=== PATIENT | female | born 1980 | race Caucasian/White ===

== ENCOUNTER → 2019-01-07 | Outpatient (CLI) | payer OTHER ==
--- NOTE | 2019-01-07 16:00 | WOMENS IMAGING REPORT ---
EXAM DESCRIPTION: BILAT DIAGNOSTIC MAMMO W/CAD; U/S BREAST UNILAT LIMITED COMPLETED DATE/TIME: 01/07/2019 12:50 pm; 01/07/2019 1:25 pm REASON FOR STUDY: N64.59 INVERSION OF NIPPLE; RT BREAST N64.4 N64.59 OTHER SIGNS AND SYMPTOMS IN EAST COMPARISON: None. EXAM PARAMETERS: Standard craniocaudal and mediolateral oblique views of each breast recorded using digital acquisition. Right breast 90 mediolateral view. Cone compression right breast in the CC and MLO orientations. R ight breast ultrasound. Read with the assistance of CAD: .COUNTS INCLUDE 234 BEDS AT THE [facility] - Medical Simulation Surface [employer] Version 9.2 LIMITATIONS: None. FINDINGS: RIGHT BREAST MASSES: In the right breast retroareolar region medially, a small mammographic nodule is present britta uring about 10 mm greatest length. This was subsequently evaluated with ultrasound, if found to be a small hypoechoic solid nodule. Ultrasound-guided core biopsy, post biopsy clip placement and follow -up two-view mammogram recommended. CALCIFICATIONS: No new or suspicious calcifications. ARCHITECTURAL DISTORTION: None. DEVELOPING DENSITY: None. ASYMMETRY: None noted. OTHER: No other significant findings. LEFT BREAST MASSES: No suspicious masses. CALCIFICATIONS: No new or suspicious calcifications. ARCHITECTURAL DISTORTION: None. DEVELOPING DENSITY: None. ASYMMETRY: None noted. OTHER: No other significant finding. Right breast ultrasound: In the right retroareolar region, a hypoechoic solid nodule is present about 10 mm in diameter few da ys status lobular margins, internal color flow, and may represent a small papilloma or fibroadenoma. Ultrasound-guided core biopsy, post biopsy clip placement and immediate follow-up two-view mammogram recommended. IMPRESSION: Small solid nodule right breast retroareolar region medially for which ultrasound-guided core biopsy, post biopsy clip placement and follow-up two-view mammogram recommended. No mammographic evidence for malignancy left breast BREAST DENSITY: a. The breasts are almost entirely fatty. BIRAD: ASSESSMENT: 4 Suspicious. Biopsy should be performed in the absence of clinical contra-indic ation. RECOMMENDATION: RECOMMENDED FOLLOW UP: Right breast ultrasound-guided core biopsy, post biopsy clip placement with follow-up two-view mammogram for small solid retroareolar nodule identified today at m ammography and ultrasound SPECIFIC INTERVENTION/IMAGING/CONSULTATION RECOMMENDED:As above COMMUNICATION:Patient notified by letter COMMENT: The patient has been notified of the results by letter per [facility] requirements. Additional no tification policies are in place for contacting patient with suspicious or incomplete findings. Quality ID #[id number]: [employer] recommends an annual screening mammogram for women aged 40 years or over. This facility utilizes a reminder system to ensure that all patients receive reminder letters, and/or direct phone calls for appointments. This includes reminders for routine scr eening mammograms, diagnostic mammograms, or other Breast Imaging Interventions when appropriate. Th is patient will be placed in the appropriate reminder system. TECHNICAL DOCUMENTATION: FINDING NUMBER: (1) ASSESSMENT: (1) JOB ID: [id number] [employer]- All Rights Reserved Reading location - IP/workstation name: [email or web address]
== END ==
LOC: WI 12:15
PROVIDERS: ATTEND Nurse Practitioner Family
DX: N63.41 Unspecified lump in right breast, subareolar (principal); N64.59 Other signs and symptoms in breast
CPT/HCPCS: 76642; 77066

== ENCOUNTER → 2019-12-19 | Outpatient (CLI) | payer OTHER ==
[2019-12-19 11:36] LABS: ALBUMIN 3.9 g/dL (3.5-5.0); ALKALINE PHOSPHATASE 73 U/L (38-126); ANION GAP 12 (5-19); ASPARTATE AMINO TRANSFERASE 20 U/L (14-36); BILIRUBIN,DIRECT 0.3 mg/dL (0.0-0.4); BILIRUBIN,TOTAL 0.5 mg/dL (0.2-1.3); BLOOD UREA NITROGEN 12 mg/dL (7-20); CALCIUM 8.4 mg/dL (8.4-10.2); CARBON DIOXIDE 27 mmol/L (22-30); CHLORIDE 103 mmol/L (98-107); CHOLESTEROL 172.69 mg/dL (0-200); GLUCOSE 101 mg/dL (75-110); POTASSIUM 4.2 mmol/L (3.6-5.0); TOTAL PROTEIN 5.9 g/dL (6.3-8.2); TRIGLYCERIDES 82 mg/dL (<150)
[2019-12-19 11:47] LABS: DIRECT LDL 134 mg/dL (<100)
[2019-12-22 07:27] LABS: MUMPS IGG AB 66.9 AU/mL (Immune >10); RUBEOLA IGG AB >300.0 AU/mL (Immune >16); VARICELLA ZOSTER IGG AB 693 index (Immune >16)
== END ==
LOC: OD 10:17
PROVIDERS: ATTEND Nurse Practitioner Family
DX: E66.01 Morbid (severe) obesity due to excess calories (principal); Z13.220 Encounter for screening for lipoid disorders; Z01.84 Encounter for antibody response examination
CPT/HCPCS: 36415; 80053; 80061; 84443; 86735; 86762; 86765; 86787